=== PATIENT | female | born 1985 | race Caucasian/White ===

== ENCOUNTER 2018-12-17 00:29 | Emergency (ER) | payer OTHER ==
[~2018-12-17] VITALS: Ht 170.2 cm; Wt 95.3 kg
[2018-12-17] MEDS ORDERED: ALLOPURINOL 10100 M1 PO (00:42)
[2018-12-17] MEDS ORDERED: MERCAPTOPURINE50 MG PO (00:42)
[2018-12-17] MEDS ORDERED: DEPO-PROVE150 MG/11 IM (00:42)
[2018-12-17] MEDS ORDERED: LIALDA1.2 GM PO (00:42)
[2018-12-17 01:28] VITALS: BP 108/64
--- NOTE | 2018-12-17 09:44 | EKG ---
[place] [address] ELECTROCARDIOGRAM REPORT Name: WILLA FLORENCE [id number] Admission: 12/17/18 Attend Phys: Discharge: 12/17/18 Date of : 81 Report #: [id number] THIS REPORT FOR: //name// [facility] ED Test Date: 2018-12-17 Test Time: 00:34:13 Pat Name: WILLA FLORENCE Department: Room: Gender: F Supervisor [employer] House: Ortega Gaston : 1985 Requested By: Marielena Neely Order Number: [id number] Reading MD: Dennys Carrion Measurements Intervals [place] Rate: 69 P: 9 CO: 143 QRS: 10 QRSD: 86 T: 57 QT: 396 QTc: 425 Interpretive Statements Sinus arrhythmia No previous ECG available for comparison Electronically Signed On 12-17-2018 9:44:27 PULMONOLOGY PHYSICIAN by Dennys Carrion [email or web address] <ELECTRONICALLY SIGNED> By: Dennys Carrion MD, [facility] 12/17/18 0944 0034 0034 Dennys Carrion MD, FACC /EPI
== END 2018-12-17 01:28 | disposition home or self-care (01) ==
LOC: M.ERS 00:29
DX: F41.9 Anxiety disorder, unspecified (principal); F17.210 Nicotine dependence, cigarettes, uncomplicated; Z88.1 Allergy status to other antibiotic agents; Z88.8 Allergy status to other drugs, medicaments and biological substances

== ENCOUNTER 2019-04-04 17:58 | Emergency (ER) | payer OTHER ==
[~2019-04-04] VITALS: Ht 172.7 cm; Wt 95.3 kg
[~2019-04-04 17:58] MED LIST: ALLOPURINOL 10100 M1 PO; DEPO-PROVE150 MG/11 IM; LIALDA1.2 GM PO; MERCAPTOPURINE50 MG PO
[2019-04-04] MEDS ORDERED: CALCIUM 600 +1 EAC1 PO (18:16)
[2019-04-04] MEDS ORDERED: STELARA45 MG/0.1 (18:16)
[2019-04-04] MEDS ORDERED: NORCO 5-325 TA1 EAC1 PO ×2 (18:33→19:04)
[2019-04-04] MEDS ORDERED: AUGMENTIN 875-1 EACH PO (18:40)
[2019-04-04 19:15] VITALS: BP 128/80
== END 2019-04-04 19:16 | disposition home or self-care (01) ==
LOC: M.ERS 17:58
DX: K64.5 Perianal venous thrombosis (principal); K50.90 Crohn's disease, unspecified, without complications; F17.210 Nicotine dependence, cigarettes, uncomplicated; Z88.1 Allergy status to other antibiotic agents; Z88.8 Allergy status to other drugs, medicaments and biological substances

== ENCOUNTER 2021-11-17 13:45 | Emergency (ER) | payer BC ==
[~2021-11-17] VITALS: Ht 172.7 cm; Wt 111.1 kg
[~2021-11-17 13:45] MED LIST changes: +AUGMENTIN 875-1 EACH PO; +CALCIUM 600 +1 EAC1 PO; +NORCO 5-325 TA1 EAC1 PO; +STELARA45 MG/0.1
[2021-11-17 16:41] LABS: URINE BILIRUBIN NEGATIVE (Negative); URINE BLOOD NEGATIVE (Negative); URINE COLOR YELLOW; URINE GLUCOSE-RANDOM NEGATIVE (Negative); URINE KETONES 1+ (Negative); URINE LEUKOCYTES-REFLEX NEGATIVE (Negative); URINE NITRITE-REFLEX NEGATIVE (Negative); URINE PROTEIN NEGATIVE (Negative); URINE SPECIFIC GRAVITY >= 1.030 (1.005-1.030); URINE UROBILINOGEN 0.2 E.U./dl (0.2-1.0)
[2021-11-17 16:42] LABS: URINE CLARITY CLEAR
[2021-11-17 16:51] LABS: ABSOLUTE EOSINOPHILS 0.1 thou/uL (0.0-0.7); ABSOLUTE LYMPHOCYTES 2.8 thou/uL (0.8-5.3); ABSOLUTE MONOCYTES 0.9 thou/uL (0.0-1.2); ABSOLUTE NEUTROPHILS 8.3 thou/uL (1.6-8.1); BASOPHILS 0.2 %; EOSINOPHILS 1.1 %; HEMATOCRIT 45.2 % (37.0-47.0); LYMPHOCYTES 23.3 %; MCH 30.8 pg (26.0-34.0); MCHC 33.1 g/dL (28.0-37.0); MONOCYTES 7.1 %; MPV 7.8 fl. (7.2-11.1); NUCLEATED RBCS 0 /100WBC; PLATELET COUNT* 278 thou/uL (150-400); POLYS 68.3 %; RBC 4.86 mil/uL (4.20-5.00); RDW-CV 14.2 % (10.5-14.5); WBC 12.2 thou/uL (4.0-11.0)
[2021-11-17 16:57] LABS: CREATININE 0.8 mg/dL (0.6-1.3); POTASSIUM 3.8 mmol/L (3.5-5.1)
[2021-11-17 17:02] LABS: ALBUMIN 3.8 g/dL (3.4-5.0); TOTAL BILIRUBIN 0.4 mg/dL (<0.1-1.0); TOTAL PROTEIN 8.3 g/dL (6.4-8.2)
[2021-11-17 17:25] VITALS: BP 135/75
== END 2021-11-17 17:33 | disposition home or self-care (01) ==
LOC: M.ERS 13:45
PROVIDERS: Student in an Organized Health Care Education/Training Program
DX: R51.9 Headache, unspecified (principal); Z32.01 Encounter for pregnancy test, result positive; N18.9 Chronic kidney disease, unspecified; F17.210 Nicotine dependence, cigarettes, uncomplicated; Z79.899 Other long term (current) drug therapy; Z88.1 Allergy status to other antibiotic agents; Z88.8 Allergy status to other drugs, medicaments and biological substances